=== PATIENT | female | born 1995 | race American Indian/Alaskan Native ===

== ENCOUNTER 2016-05-03 15:07 | Emergency (ER) | payer OTHER, MEDICAID ==
--- NOTE | 2016-05-03 20:42 | Emergency Department Report ---
ED ENT HPI - General Chief complaint: Headache Stated complaint: KATIE/HEADACHE Time Seen by Provider: 05/03/16 20:35 Source: patient Mode of arrival: Ambulatory Limitations: No Limitations - History of Present Illness Initial comments: 21 y/o female complain of headache ,left ear pain and nausea x 3 weeks.pt state she was prior seen in the urgent care center 3 weeks ago and told she had a viral infection .pt state that last normal menstrual cylce was in feb. complaint: ear pain Onset/Timin -: week(s) Location: L ear Severity scale (0 -10): 7 Quality: aching Consistency: constant Improves with: none Worsens with: swallowing Associated Symptoms: fever, sore throat - Related Data Previous Rx's Medication Instructions Recorded Last Taken Type Permethrin 5% [Acticin 5% CREAM] 60 gm TP ONCE #1 tube 02/27/13 Unknown Rx Triamcinolone Acetonide 80 gm TP BID #1 cream..g. 02/27/13 Unknown Rx [Triamcinolone Acetonide Cream 0.1%] hydrOXYzine HCL [Atarax] 25 mg PO Q6HR PRN #30 tablet 02/27/13 Unknown Rx Vit/Iron Fumarate/FA 1 each PO QDAY #90 tablet 08/29/13 Unknown Rx [ Vitamin Tablet] Amoxicillin/K Clav Tab [Augmentin 1 tab PO Q12HR #14 tab 05/03/16 Unknown Rx 875 mg] Ibuprofen [Motrin] 800 mg PO Q8HR PRN #15 tablet 05/03/16 Unknown Rx Allergies Allergy/AdvReac Type Severity Reaction Status Date / Time No Known Allergies Allergy Unverified 02/27/13 15:09 ED Dental HPI - General Chief complaint: Headache Stated complaint: KATIE/HEADACHE Time Seen by Provider: 05/03/16 20:35 Source: patient Mode of arrival: Ambulatory Limitations: No Limitations - Related Data Previous Rx's Medication Instructions Recorded Last Taken Type Permethrin 5% [Acticin 5% CREAM] 60 gm TP ONCE #1 tube 02/27/13 Unknown Rx Triamcinolone Acetonide 80 gm TP BID #1 cream..g. 02/27/13 Unknown Rx [Triamcinolone Acetonide Cream 0.1%] hydrOXYzine HCL [Atarax] 25 mg PO Q6HR PRN #30 tablet 02/27/13 Unknown Rx Vit/Iron Fumarate/FA 1 each PO QDAY #90 tablet 08/29/13 Unknown Rx [ Vitamin Tablet] Amoxicillin/K Clav Tab [Augmentin 1 tab PO Q12HR #14 tab 05/03/16 Unknown Rx 875 mg] Ibuprofen [Motrin] 800 mg PO Q8HR PRN #15 tablet 05/03/16 Unknown Rx Allergies Allergy/AdvReac Type Severity Reaction Status Date / Time No Known Allergies Allergy Unverified 02/27/13 15:09 ED Review of Systems ROS: Stated complaint: KATIE/HEADACHE Other details as noted in HPI Constitutional: fever. denies: chills Eyes: denies: eye pain, eye discharge, vision change ENT: ear pain, congestion. denies: throat pain Respiratory: denies: cough, shortness of breath, wheezing Cardiovascular: denies: chest pain, palpitations Endocrine: no symptoms reported Gastrointestinal: denies: abdominal pain, nausea, diarrhea Genitourinary: denies: urgency, dysuria, discharge Musculoskeletal: denies: back pain, joint swelling, arthralgia Skin: denies: rash, lesions Neurological: denies: headache, weakness, paresthesias Psychiatric: denies: anxiety, depression Hematological/Lymphatic: denies: easy bleeding, easy bruising ED Past Medical Hx - Social History Smoking Status: Never Smoker Substance Use Type: None - Medications Home Medications: Home Medications Medication Instructions Recorded Confirmed Last Taken Type Permethrin 5% [Acticin 5% CREAM] 60 gm TP ONCE #1 tube 02/27/13 Unknown Rx Triamcinolone Acetonide 80 gm TP BID #1 cream..g. 02/27/13 Unknown Rx [Triamcinolone Acetonide Cream 0.1%] hydrOXYzine HCL [Atarax] 25 mg PO Q6HR PRN #30 tablet 02/27/13 Unknown Rx Vit/Iron Fumarate/FA 1 each PO QDAY #90 tablet 08/29/13 Unknown Rx [ Vitamin Tablet] Amoxicillin/K Clav Tab [Augmentin 1 tab PO Q12HR #14 tab 05/03/16 Unknown Rx 875 mg] Ibuprofen [Motrin] 800 mg PO Q8HR PRN #15 tablet 05/03/16 Unknown Rx ED Physical Exam - General Limitations: No Limitations General appearance: alert, in no apparent distress - Head Head exam: Present: atraumatic, normocephalic - Eye Eye exam: Present: normal appearance - ENT ENT exam: Present: mucous membranes moist - Expanded ENT Exam Expanded TM/Canal exam: Effusion: Left TM, Mastoid Tenderness: Right TM, Left TM ( maxillary and frontal ) Throat exam: Positive: tonsillar erythema, other (post nasal drip) - Neck Neck exam: Present: normal inspection - Respiratory Respiratory exam: Present: normal lung sounds bilaterally. Absent: respiratory distress, wheezes - Cardiovascular Cardiovascular Exam: Present: regular rate, normal rhythm. Absent: systolic murmur, diastolic murmur, rubs, gallop - GI/Abdominal GI/Abdominal exam: Present: soft, normal bowel sounds - Extremities Exam Extremities exam: Present: normal inspection, full ROM - Back Exam Back exam: Present: normal inspection, full ROM. Absent: CVA tenderness (R), CVA tenderness (L) - Neurological Exam Neurological exam: Present: alert, oriented X3 - Psychiatric Psychiatric exam: Present: normal affect, normal mood - Skin Skin exam: Present: warm, dry, intact, normal color. Absent: rash ED Course Vital Signs 05/03/16 15:10 Temperature 99.8 F H Pulse Rate 72 Respiratory 18 Rate Blood Pressure 115/72 O2 Sat by Pulse 100 Oximetry ED Medical Decision Making - Medical Decision Making sinusitis maxillary tenderness and edema noted Critical care attestation.: If time is entered above; I have spent that time in minutes in the direct care of this critically ill patient, excluding procedure time. ED Disposition Clinical Impression: Sinusitis Qualifiers: Sinusitis location: maxillary Chronicity: acute Recurrence: non-recurrent Qualified Code(s): J01.00 - Acute maxillary sinusitis, unspecified Disposition: DISCHARGED TO HOME OR SELFCARE Is pt being admited?: No Does the pt Need Aspirin: No Condition: Stable Instructions: Sinusitis (ED) Prescriptions: Amoxicillin/K Clav Tab [Augmentin 875 mg] 1 tab PO Q12HR #14 tab Ibuprofen [Motrin] 800 mg PO Q8HR PRN #15 tablet PRN Reason: Pain Referrals: PRIMARY CARE,MD [Primary Care Provider] - 3-5 Days [facility] [Outside] - 3-5 Days Forms: Work/School Release Form(ED) Time of Disposition: 22:10
[2016-05-03 21:38] LABS: Bilirubin,Urine NEG (Negative); Blood,Urine NEG (Negative); Ketones,Urine 20 mg/dL (Negative); Leukocyte Esterase,Urine TR (Negative); Mucus,Urine 3+ /HPF; Nitrite,Urine NEG (Negative); Protein,Urine <15 mg/dL mg/dL (Negative)
[2016-05-03 22:35] VITALS: BP 120/70
== END 2016-05-03 22:38 | disposition home or self-care (01) ==
LOC: ED 15:07
DX: J01.00 Acute maxillary sinusitis, unspecified (principal); H92.01 Otalgia, right ear; J02.9 Acute pharyngitis, unspecified
CPT/HCPCS: 81001; 81025; 99283